=== PATIENT | female | born 1940 | race Caucasian/White ===

== ENCOUNTER 2020-12-07 19:21 | Emergency (ER) | payer OTHER, SELFPAY ==
[2020-12-07] VITALS (12 sets, daily range): BP systolic 141–208; BP diastolic 72–104; PULSE 95–107; RESP 16–26; TEMP 36.7; O2SAT 91–100
--- NOTE | 2020-12-07 19:55 | DI.CT.S_ITS ---
PROCEDURE: CT HEAD/BRAIN WO CON INDICATIONS: Trauma TECHNIQUE: Noncontrast 4.5 mm thick angled axial sections acquired from the foramen magnum to the vertex, with coronal and sagittal reformats. For radiation dose reduction, the following was used: automated exposure control, adjustment of mA and/or kV according to patient size. COMPARISON: None. FINDINGS: Image quality: Excellent. CSF spaces: Basal cisterns are patent. No extra-axial fluid collections. Ventricles are normal in size and shape. Brain: No midline shift. No intracranial masses or hemorrhage. Addison-white matter interface is normal. Skull and face: Calvarium and visualized facial bones are intact, without suspicious lesions. Scalp hematoma in the high posterior parietal region. Sinuses: Visualized sinuses and mastoids are clear. IMPRESSION: No acute intracranial abnormality. High posterior parietal scalp laceration Dictated by: Gamal Drake M.D. on 12/07/2020 at 20:34 Approved by: Gamal Drake M.D. on 12/07/2020 at 20:35
--- NOTE | 2020-12-07 19:55 | DI.CT.S_ITS ---
PROCEDURE: CT CERVICAL SPINE WO CON INDICATIONS: Trauma TECHNIQUE: Noncontrast 3 mm thick sections acquired from the skull base to the T4 level. Sagittal and coronal reformats were then constructed. For radiation dose reduction, the following was used: automated exposure control, adjustment of mA and/or kV according to patient size. COMPARISON: None. FINDINGS: Image quality: Excellent. Bones: No fractures or dislocations. Visualized superior ribs are intact. Soft tissues: Prevertebral soft tissues are normal in thickness. No paravertebral hematomas. No apical pneumothoraces. IMPRESSION: No CT evidence of acute traumatic cervical spine injury. Dictated by: Gamal Drake M.D. on 12/07/2020 at 20:35 Approved by: Gamal Drake M.D. on 12/07/2020 at 20:37
--- NOTE | 2020-12-07 19:55 | DI.CT.S_ITS ---
PROCEDURE: CT CHEST ABD PEL W CON INDICATIONS: Trauma TECHNIQUE: After the administration of intravenous contrast, 5 mm thick sections acquired from the lung apices to the symphysis. 2.5 mm thick coronal and sagittal reformats were acquired. Additional 7 mm thick coronal maximum intensity projection (MIP) reformats acquired through the lungs. Optional 10-minute delayed imaging may be performed from the kidneys to the bladder. For radiation dose reduction, the following was used: automated exposure control, adjustment of mA and/or kV according to patient size. COMPARISON: [facility], CT, CT MIGUEL, 05/17/2014, 15:36. [facility] [place], CR, SPINE LUMB 2 OR 3VW, 08/15/2010, 10:58. FINDINGS: Image quality: Excellent. CHEST: Minimal atelectasis in the posterior lungs bilaterally. Otherwise clear lungs and pleural spaces. Mediastinal structures are unremarkable with the exception of coronary and aortic atherosclerosis. Right chest wall central venous port terminates near the cavoatrial junction. There is no acute fracture in the chest identified. ABDOMEN: No free fluid or free air in the abdomen. Cholelithiasis. No acute finding of the liver, spleen, gallbladder, pancreas, adrenal glands, or kidneys. No acute enteric abnormality. Age-indeterminate height loss of the L4 vertebral body. No discrete fracture plane is identified, favoring a chronic injury although correlation for any point tenderness is requested. Extensive degenerative changes in the thoracic and lumbar spine. PELVIS: Pelvic osseous structures intact. No free pelvic fluid. Urinary bladder and remaining pelvic viscera are within normal limits. IMPRESSION: Age-indeterminate height loss of the L4 vertebral body. This is favored remote as there is no definite fracture plane identified. However, correlation with any point tenderness is requested to exclude an acute component. No acute traumatic finding identified otherwise. Dictated by: Gamal Drake M.D. on 12/07/2020 at 20:38 Approved by: Gamal Drake M.D. on 12/07/2020 at 20:44
[2020-12-07 20:02] LABS: Add Manual Diff / Slide Review NO; Basophils Absolute Auto 100 /uL (0-100); Basophils Percent Auto 0.5 % (0-2); Eosinophils Absolute Auto 300 /uL (0-450); Eosinophils Percent Auto 2.2 % (2-4); Hematocrit 41.5 % (36-46); Hemoglobin 13.6 g/dL (12.0-16.0); Lymphocytes Absolute Auto 1500 /uL (1100-4500); Lymphocytes Percent Auto 11.1 % (25-40); Mean Corpuscular HGB Conc 32.7 % (30-36); Mean Corpuscular Hemoglobin 28.4 PG (26-34); Mean Corpuscular Volume 86.7 fL (80-100); Monocytes Absolute Auto 700 /uL (0-900); Monocytes Percent Auto 4.9 % (3-14); Neutrophils Absolute Auto 11300 /uL (1500-7000); Neutrophils Percent Auto 81.3 % (50-75); Platelet Count 261 X10^3/uL (150-400); Red Blood Cell Count 4.78 X10^6/uL (4.0-5.2); Red Cell Distribution Width 13.9 % (11.6-14.8); White Blood Cell Count 13.9 X10^3/uL (4.5-11.0)
[2020-12-07] MEDS: ONDANSETRON 4 MG/2 ML INJ IV (20:07)
[2020-12-07 20:08] LABS: Alanine Aminotransferase 28 IU/L (<35); Albumin 4.5 g/dL (3.5-5.0); Albumin Globulin Ratio 1.3 (1.0-2.8); Alkaline Phosphatase 72 U/L (38-126); Aspartate Aminotransferase 46 IU/L (14-36); BUN Creatinine Ratio 16.2 (6-22); Bilirubin Total 0.5 mg/dL (0.2-1.3); Blood Urea Nitrogen 17 mg/dL (7-17); Calcium 10.1 mg/dL (8.4-10.2); Carbon Dioxide 27 mmol/L (22-32); Chloride 104 mmol/L (98-107); Estimated Glomerular Filt Rate 50.2 mL/min (>60); Globulin 3.4 g/dL (1.7-4.1); Glucose 143 mg/dL (80-110); HEMOLYSIS < 15 (0-50); Lipase 363 U/L (23-300); Potassium 4.2 mmol/L (3.4-5.1); Sodium 141 mmol/L (137-145); Total Protein 7.9 g/dL (6.3-8.2)
[2020-12-07] MEDS: HYDROMORPHONE 1 MG INJ 0.5 MG IV (20:08)
--- NOTE | 2020-12-07 21:10 | PC.NURSE ---
pts c-spine cleared, collar removed
--- NOTE | 2020-12-07 21:31 | ED.FALL ---
HPI - Fall General Chief Complaint: Trauma Stated Complaint: Fall Time Seen by Provider: 12/07/20 19:45 Source: patient and EMS Mode of arrival: EMS History of Present Illness HPI Narrative: 80-year-old woman with a history of Alzheimer's type dementia and hypertension presents after a fall down half a flight of stairs complaining of midthoracic and right shoulder pain. She did hit her head and does have a contusion to the occiput. She lives in a home with a spiral staircase and simply tripped and fell down the stairs this evening. She does not report any loss of consciousness. She reports no recent fevers, cough, chills, abdominal pain, diarrhea, rashes, chest pain, exertional dyspnea, palpitations. Her daughter corroborates this review of systems. Review of Systems Review of Systems Narrative: Patient is pleasantly demented and denies any findings on review of systems however her memory dysfunction certainly limits the validity of her answers. Patient History Medical History Alzheimer's type dementia History of breast cancer Hypertension Exam Narrative Exam Narrative: General: Healthy appearing, in mild distress. Well-nourished well-developed HEENT: Moist mucous membranes, normal sclera with reactive pupils, abrasion and contusion to the posterior occiput without significant laceration. Neck: Central cervical spine pain at C2-3 and 4 with mild paraspinous muscle spasm. Respiratory: Lungs are clear to auscultation, no wheezing no rales no rhonchi. Full and symmetrical air movement Chest: Tenderness with manipulation of her ribcage bilaterally. Pain through the midthoracic region that is not obviously localized. Cardiac: Regular rate and rhythm no murmurs no bruits Abdomen: Soft, nontender, good bowel tones, no flank pain Skin: Warm and dry, no rashes Pelvis: No tenderness to pelvic ring however she does have some tenderness over the left hip with external rotation in the greater trochanter. Neurologic: Grossly neurologically intact with no obvious asymmetries or abnormalities Extremities: Minor abrasion behind the left elbow. No obvious deformities. Psych: Cooperative, pleasant with moderate memory loss Initial Vital Signs Initial Vital Signs: Vital Signs Temperature 98.1 F 12/07/20 19:24 Pulse Rate 97 H 12/07/20 19:24 Respiratory Rate 26 H 12/07/20 19:24 Blood Pressure 204/104 H 12/07/20 19:24 Pulse Oximetry 100 12/07/20 19:24 Course Orders Ordered: ED Orders 12/07/20 19:40 Complete Blood Count AUTO DIFF Stat Comprehensive Metabolic Panel Stat Lipase Stat 12/07/20 19:55 CT cervical spine wo con Stat CT chest abd pel w con Stat CT head/brain wo con Stat 12/07/20 21:56 Urine Culture Stat Urine Microscopic Stat Discontinued Medications Acetaminophen (Acetaminophen 325 Mg Tablet) 325 mg PO NOW ONE Stop: 12/07/20 22:34 Last Admin: 12/07/20 22:40 Dose: 325 mg Documented by: VIRGIL Hydromorphone HCl (Hydromorphone 1 Mg Inj) 0.5 mg IV NOW ONE Stop: 12/07/20 19:55 Last Admin: 12/07/20 20:08 Dose: 0.5 mg Documented by: EDILBERTO Ibuprofen (Ibuprofen 400 Mg Tablet) 400 mg PO NOW ONE Stop: 12/07/20 22:34 Last Admin: 12/07/20 22:41 Dose: 400 mg Documented by: VIRGIL Ondansetron HCl (Ondansetron 4 Mg/2 Ml Inj) 4 mg IV NOW ONE Stop: 12/07/20 19:55 Last Admin: 12/07/20 20:07 Dose: 4 mg Documented by: EDILBERTO Trimethoprim/Sulfamethoxazole (Trimeth/Sulfa 160/800 (Ds) Tablet) 1 tab PO NOW ONE Stop: 12/07/20 22:34 Last Admin: 12/07/20 22:40 Dose: 1 tab Documented by: VIRGIL Vital Signs Vital signs: Vital Signs - 8 hr 12/07/20 19:24 12/07/20 20:31 12/07/20 20:32 Temperature 98.1 F Pulse Rate 97 H 100 H 100 H Respiratory Rate 26 H 20 16 Blood Pressure 204/104 H 185/79 H Pulse Oximetry 100 91 92 12/07/20 21:00 12/07/20 21:01 12/07/20 21:30 Temperature Pulse Rate 95 H 97 H 103 H Respiratory Rate 19 20 24 Blood Pressure 178/89 H Pulse Oximetry 93 92 92 12/07/20 21:31 12/07/20 22:00 12/07/20 22:01 Temperature Pulse Rate 101 H 107 H 106 H Respiratory Rate 24 22 24 Blood Pressure 208/86 H 185/88 H Pulse Oximetry 92 94 94 12/07/20 22:30 12/07/20 22:31 12/07/20 22:52 Temperature Pulse Rate 107 H 106 H 100 H Respiratory Rate 23 22 18 Blood Pressure 169/74 H 141/72 H Pulse Oximetry 93 92 98 MDM - Fall Medical Records Attestation: I reviewed the patient's medical records. Lab Data Attestation: I reviewed the patient's lab results. Result diagrams: 12/07/20 19:40 12/07/20 19:40 Labs: Lab Results 12/07/20 12/07/20 12/07/20 Range/Units 19:40 19:40 21:56 WBC 13.9 H (4.5-11.0) X10^3/uL RBC 4.78 (4.0-5.2) X10^6/uL Hgb 13.6 (12.0-16.0) g/dL Hct 41.5 (36-46) % MCV 86.7 (80-100) fL MCH 28.4 (26-34) PG MCHC 32.7 (30-36) % RDW 13.9 (11.6-14.8) % Plt Count 261 (150-400) X10^3/uL Neut % (Auto) 81.3 H (50-75) % Lymph % (Auto) 11.1 L (25-40) % [place] % (Auto) 4.9 (3-14) % Eos % (Auto) 2.2 (2-4) % Baso % (Auto) 0.5 (0-2) % Neut # (Auto) 13066 H (1347-0048) /uL Lymph # (Auto) 1500 (9559-2653) /uL [place] # (Auto) 700 (0-900) /uL Eos # (Auto) 300 (0-450) /uL Baso # (Auto) 100 (0-100) /uL Sodium 141 (137-145) mmol/L Potassium 4.2 (3.4-5.1) mmol/L Chloride 104 (98-107) mmol/L Carbon Dioxide 27 (22-32) mmol/L BUN 17 (7-17) mg/dL Creatinine 1.05 H (0.52-1.04) mg/dL Estimated GFR 50.2 L (>60) mL/min BUN/Creatinine Ratio 16.2 (6-22) Glucose 143 H (80-110) mg/dL Calcium 10.1 (8.4-10.2) mg/dL Total Bilirubin 0.5 (0.2-1.3) mg/dL AST 46 H (14-36) IU/L ALT 28 (<35) IU/L Alkaline Phosphatase 72 (38-126) U/L Total Protein 7.9 (6.3-8.2) g/dL Albumin 4.5 (3.5-5.0) g/dL Globulin 3.4 (1.7-4.1) g/dL Albumin/Globulin Ratio 1.3 (1.0-2.8) Lipase 363 H (23-300) U/L Urine RBC 0-1/hpf (0-5/HPF) Urine WBC 5-10/hpf H (0-5/HPF) Ur Squamous Epith Cells 1-5 /hpf (0-5/HPF) Ur Transition Epith Cell 1-5/hpf (0-5/HPF) Urine Bacteria Many (>30) H (None) Ur Culture Indicated? Specimen cultured Urine Dip Bedside Urine Glucose Negative Bedside Urine Bilirubin - Negative Bedside Urine Ketone - Negative Urine Specific [place] 1.015 Bedside Urine Occult Blood +/- Bedside Urine pH 6.0 Bedside Urine Protein - Negative Bedside Urine Urobilinogen - Negative Bedside Urine Nitrite + Positive Bedside Urine Leukocytes - Negative Esterase Imaging Data CT scan - head: Radiologist's Impression: FINDINGS: Image quality: Excellent. Bones: No fractures or dislocations. Visualized superior ribs are intact. Soft tissues: Prevertebral soft tissues are normal in thickness. No paravertebral hematomas. No apical pneumothoraces. IMPRESSION: No CT evidence of acute traumatic cervical spine injury. Dictated by: Gamal Drake M.D. on 12/07/2020 at 20:35 CT chest abdomen pelvis: Radiologist's Impression: FINDINGS: Image quality: Excellent. CHEST: Minimal atelectasis in the posterior lungs bilaterally. Otherwise clear lungs and pleural spaces. Mediastinal structures are unremarkable with the exception of coronary and aortic atherosclerosis. Right chest wall central venous port terminates near the cavoatrial junction. There is no acute fracture in the chest identified. ABDOMEN: No free fluid or free air in the abdomen. Cholelithiasis. No acute finding of the liver, spleen, gallbladder, pancreas, adrenal glands, or kidneys. No acute enteric abnormality. Age-indeterminate height loss of the L4 vertebral body. No discrete fracture plane is identified, favoring a chronic injury although correlation for any point tenderness is requested. Extensive degenerative changes in the thoracic and lumbar spine. PELVIS: Pelvic osseous structures intact. No free pelvic fluid. Urinary bladder and remaining pelvic viscera are within normal limits. IMPRESSION: Age-indeterminate height loss of the L4 vertebral body. This is favored remote as there is no definite fracture plane identified. However, correlation with any point tenderness is requested to exclude an acute component. No acute traumatic finding identified otherwise. Dictated by: Gamal Drake M.D. on 12/07/2020 at 20:38 CT - cervical spine: Radiologist's Impression: FINDINGS: Image quality: Excellent. Bones: No fractures or dislocations. Visualized superior ribs are intact. Soft tissues: Prevertebral soft tissues are normal in thickness. No paravertebral hematomas. No apical pneumothoraces. IMPRESSION: No CT evidence of acute traumatic cervical spine injury. Dictated by: Gamal Drake M.D. on 12/07/2020 at 20:35 ECG Data Attestation: I personally reviewed and interpreted this ECG as follows: Interpretation: Sinus rhythm at a rate of 95 Normal rhythm, normal axis, No acute ischemic changes MDM Narrative Medical decision making narrative: 80-year-old woman with a history of Alzheimer's disease, hypertension and breast cancer who lives with her son with a bedroom at the top of a spiral staircase. She fell approximately half of the way down, 8-10 feet today. She complains of pain to the back of her head and right arm and mid thorax. Her pain is difficult to specifically localize but she clearly has tenderness with any type of movement. Labs are reassuring. CT scan of the head neck chest abdomen and pelvis are all unremarkable. No intracranial hemorrhage no cervical spine injury. No injuries over the thoracic spine or broken ribs. No explanation for the midthoracic pain other than contusion and strain. No intra-abdominal bleeding. She has remained hemodynamically stable throughout her emergency room visit. She has responded nicely to a small dose of Dilaudid. Results reviewed with both patient and her daughter and she is felt to be same for home discharge. Her daughter does note that the patient's son and grandson both live in the same house. There is an available sleeping space that will not require her to go up and down the spiral staircase. She is safe for home discharge from Discharge Plan Departure Patient Disposition: Home Clinical Impression: Right-sided chest pain Fall down stairs Qualifiers: Encounter type: initial encounter Qualified Code(s): W10.8XXA - Fall (on) (from) other stairs and steps, initial encounter Contusion of head Qualifiers: Encounter type: initial encounter Contusion of head detail: scalp Qualified Code(s): S00.03XA - Contusion of scalp, initial encounter Activity Restrictions/Additional Instructions: Thank you for coming in today You had quite the fall and you did not break anything. You do have a bruise to the back of your head but this does not need stitches in there is no bleeding inside your head. There are no broken bones along your neck or spine You do not have any broken bones in her shoulders particularly the right shoulder that is sore or in your hips particularly the left hip which is sore. Your heart, lungs and internal organs are all safe Please do expect to hurt more tomorrow. I would encourage you to try to get up and walk a bit. Using 400 mg of ibuprofen (2 [id number] pills) and 1 Tylenol every 6 hours can be very helpful in controlling pain. Consider using ice to the areas of tenderness Please follow-up with your primary care physician
--- NOTE | 2020-12-07 21:36 | PC.NURSE ---
Per DR Megan quijano,inflatable c collar removed.Her daughter is in room with her.
[2020-12-07 22:13] LABS: Bacteria Urine Many (>30); Culture Indicated Urine Specimen Cultured; RBC Urine 0-1/HPF (0-5/HPF); Squamous Epithelial Cell Urine 1-5 /HPF (0-5/HPF); Transitional Epi Cells Urine 1-5/HPF (0-5/HPF); WBC Urine 5-10/HPF (0-5/HPF)
[2020-12-07] MEDS: TRIMETH/SULFA 160/800 (DS) TABLET 1 TAB PO (22:40)
[2020-12-07] MEDS: ACETAMINOPHEN 325 MG TABLET PO (22:40)
[2020-12-07] MEDS: IBUPROFEN 400 MG TABLET PO (22:41)
--- NOTE | 2020-12-16 13:19 | PC.NURSE ---
Son Chacho called back regarding letter sent from ED. Chacho states his mother was placed on antibiotics 4 days ago and is feeling well. Denies needs at this time. Encouraged to f/u as needed and indicated and return for any needs, concerns, worsening.
== END 2020-12-07 23:15 | disposition home or self-care (01) ==
PROVIDERS: Emergency Provider Emergency Medicine
DX: S00.03XA Contusion of scalp, initial encounter (principal); R07.9 Chest pain, unspecified; M25.511 Pain in right shoulder; W10.8XXA Fall (on) (from) other stairs and steps, initial encounter
CPT/HCPCS: 36415; 70450; 71260; 72125; 74177; 80053; 81003; 81015; 83690; 85025; 87077; 87086; 87186; 93005; 96374; 96375; 99284; J1170; J2405; Q9967